=== PATIENT | female | born 1975 | race Caucasian/White ===

== ENCOUNTER 2016-07-23 18:41 | Observation (INO) | payer MEDICARE, OTHER ==
[~2016-07-23 18:41] MED LIST: BENA25TA3 PO; BUSP30TA PO; HOME1TAB8; LYRI225C PO; OMEP40CA2 PO; PROZ40CA PO; TIZA4 PO
[2016-07-23 22:39] VITALS: BP 176/79; PULSE 59; RESP 18; TEMP 97.9; O2SAT 100
[2016-07-23] MEDS ORDERED: ENOXAPARIN SODIUM 40 MG/0.4 ML SYRINGE SQ SCH (23:15)
[2016-07-23] MEDS ORDERED: ACETAMINOPHEN 325 MG TAB PO PRN (23:15)
[2016-07-23] MEDS ORDERED: NALOXONE HCL 0.4 MG/ML AMP IV PRN (23:15)
[2016-07-23] MEDS ORDERED: SODIUM CHLORIDE 0.9% FLUSH 10 ML FLUSH IV FLUSH PRN (23:15)
[2016-07-23] MEDS ORDERED: ONDANSETRON HCL 4 MG/2 ML VIAL IVP PRN (23:15)
--- NOTE | 2016-07-23 23:51 | HHI.HP ---
[facility]Staff Admission Diagnosis Chest pain, elevated D Dimer r/o PE Diagnoses: Chief Complaint: chest pain Travel History International Travel<30 Days: No Contact w/Intl Traveler <30 Da: No Traveled to Known Affected Are: No History of Present Illness This is a 41 year old female patient with a past medical history which includes lupus, fibromyalgia, bipolar, anxiety/depression, PTSD and prior OK at age 21 which did not require cardiac intervention. Patient reports she was in her normal state of health yesterday. Patient reports she was awoken this morning by left sided chest pain which radiated to her shoulder and down her left arm. Patient reports the pain feels like a pressure/tearing sensation. The chest pain is associated with nausea, diaphoresis and inability to take a deep breath. Patient reports nothing so far has relieved the pain. Patient reports the chest pain is worsened by laying flat or deep breathing. Patient reports the pain is a 10 out of 10 and has gotten progressively more severe throughout the day. Initial troponin less than 0.02 and initial EKG read by Dr. Hester [facility], "EKG that is not showing any acute process." Patient had mildly elevated d-dimer 0.52. Patient has recent travel from [place] to [place] approximally 36 hour car ride which she reports she took minimal stops only to use the restroom when necessary. This car trip was completed on June 22, 2016. Patient reports initially when she completed the car trip her bilateral lateral lower extremities were extremely swollen with associate calf pain, which has since resolved. Patient denies history of DVT or pulmonary embolism. Patient is not on hormone replacement. Review of Systems Except as stated in HPI: all other systems reviewed are Neg Past Family Social History Past Medical History lupus, fibromyalgia, bipolar, anxiety/depression, PTSD and prior OK at age 21 which did not require cardiac intervention Past Surgical History Tubal ligation Reported Medications Omeprazole 40 Mg Cap 40 Mg PO DAILY Benadryl Allergy (Diphenhydramine HCl) 25 Mg Tab 25 Mg PO HS PRN Leg Cramp Relief (Homeopathic Products) 1 Tab Tab Lyrica (Pregabalin) 225 Mg Cap 225 Mg PO QHS Zanaflex (Tizanidine HCl) 4 Mg Tab 4 Mg PO BID Buspirone (Buspirone HCl) 30 Mg Tab 30 Mg PO BID Prozac (Fluoxetine HCl) 40 Mg Cap 40 Mg PO DAILY Allergies: Coded Allergies: Contrast Media (Verified Allergy, Unknown, Anaphylaxis, 07/23/16) Cranberry (Verified Allergy, Unknown, Ulcers, 07/23/16) Grapefruit (Verified Allergy, Unknown, Ulcers, 07/23/16) Lortab (Verified Allergy, Unknown, HIVES, 07/23/16) Penicillin (Verified Allergy, Unknown, 07/23/16) PARALYZED Prednisone (Verified Allergy, Unknown, Psychosis, 07/23/16) Tetracycline (Verified Allergy, Unknown, Nausea/Vomiting, 07/23/16) Active Ordered Medications Current Medications Medications (Trade) Dose Ordered Sig/Avani Route Start Time Stop Time Status Last Admin (NS Flush) 2 ml UNSCH PRN IV FLUSH 07/23/16 23:15 (NS Flush) 2 ml BID IV FLUSH 07/24/16 09:00 (Tylenol) 650 mg Q4H PRN PO 07/23/16 23:15 (Zofran Inj) 4 mg Q6H PRN IVP 07/23/16 23:15 (Lovenox Inj) 40 mg Q24H SQ 07/23/16 23:15 (Narcan Inj) 0.4 mg UNSCH PRN IV 07/23/16 23:15 Family History Mother alive 63 has depression, schizophrenia and hypertension Patient is estranged from her father does not know his medical history Paternal grandmother had diabetes Social History Patient reports she smokes cigarettes 4-5 cigarettes per day since age 1 Occasional EtOH use not on a daily basis Denies illicit drug use Physical Exam Vital Signs Vital Signs Date Time Temp Pulse Resp B/P Pulse Ox O2 Delivery O2 Flow Rate FiO2 07/23/16 22:39 97.9 59 18 176/79 100 Physical Exam GENERAL: This is a obese, well-developed patient, appears painful SKIN: No rashes, ecchymoses or lesions. Cool and dry. HEAD: Atraumatic. Normocephalic. No temporal or scalp tenderness. EYES: Extraocular motions intact. No scleral icterus. No injection or drainage. CARDIOVASCULAR: Regular rate and rhythm without murmurs, gallops, or rubs. RESPIRATORY: Diminished throughout inspiratory effort limited by pain GASTROINTESTINAL: Abdomen soft, non-tender, nondistended. MUSCULOSKELETAL: Extremities without clubbing, cyanosis, or edema. No joint tenderness, effusion, or edema noted. No calf tenderness. Negative Homans sign bilaterally. NEUROLOGICAL: Awake and alert. Motor and sensory grossly within normal limits. Five out of 5 muscle strength in all muscle groups. Normal speech. Assessment and Plan Problem List: (1) Atypical chest pain ICD Code: R07.89 Status: Acute (2) Elevated d-dimer ICD Code: R79.89 Status: Acute Assessment and Plan This is a 41 year old female patient with a past medical history which includes lupus, fibromyalgia, bipolar, anxiety/depression, PTSD and prior OK at age 21 which did not require cardiac intervention. Patient reports she was awoken this morning by left sided chest pain which radiated to her shoulder and down her left arm. Patient reports the pain feels like a pressure/tearing sensation. The chest pain is associated with nausea, diaphoresis and inability to take a deep breath. Patient had mildly elevated d-dimer 0.52. 36 hour car ride on June 22, 2016. Atypical chest pain with history of OK- rule out acute coronary syndrome Initial EKG read by Dr. Hester as no acute process Serial EKGs Initial troponin less than 0.02 continue serial troponin Morphine as needed for pain, titrate oxygen as needed Nothing by mouth after midnight with IV fluids normal saline at 84 cc per hour Check TSH, Lipid Profile, Hgb A1c. Start [id number] for bradycardia, ASA and Statin Elevated d-dimer with recent travel Anaphylaxis allergy to contrast medium VQ scan ordered stat pending Ultrasound bilateral lower extremities to rule out DVT also ordered Other stable chronic medical conditions include lupus, fibromyalgia, bipolar and anxiety/depression will continue home medications as indicated DVT prophylaxis with Lovenox at this time Discussed with nursing patient and Dr. Servin Attending Statement Agree with above assessment and plan. Pt is a 41yof w/ complaints of chest pain, +long travel w/ elevated d-dimer, tx from [facility] for V/Q scan and further cardiac work up. Reported h/o OK per patient, details unclear. -Check V/Q Scan -Check LE Doppler -Check serial cardiac enzymes, TSH, Lipid Profile, Hgb A1c. -Start I-[id number] for bradycardia, ASA and Statin -Cardiology consult as needed. Suzy Mott Jul 23, 2016 23:51 Celestina Servin MD Jul 24, 2016 00:23
[2016-07-24 00:02] LABS: BETA HCG QUANT LESS THAN 1 MIU/ML (0-5)
[2016-07-24] MEDS: SODIUM CHLOR 0.9% 1000 ML INJ 1,000 ML IV SCH ×2 (00:10→12:48)
[2016-07-24] MEDS: MORPHINE SULFATE 4 MG/ML INJ IV PUSH PRN ×3 (00:11→08:24)
[2016-07-24] MEDS ORDERED: PILL SPLITTER OTHER PRN (00:30)
--- NOTE | 2016-07-24 02:36 | RADRPT ---
EXAM DATE/TIME: 07/24/2016 02:05 [facility] COMPARISON: No previous studies available for comparison. INDICATIONS : Shortness of breath and left sided chest pain radiating to left arm. Asthma. DOSE: 8.1 mCi Tc99m MAA IV 1.2 mCi Tc99m DTPA aerosol MEDICAL HISTORY : Myocardial infarction. Carcinoma, basal cell. SURGICAL HISTORY : section. Cholecystectomy. Gastric bypass. L5 fusion and breast augumentation. ENCOUNTER: Initial ACUITY: 1 day PAIN SCALE: 2/10 LOCATION: Left chest TECHNIQUE: Following five minutes of tidal breathing of DTPA aerosol, planar images of the lungs were performed in eight projections. The patient was then injected with MAA, and eight-view perfusion scan was perf ormed. FINDINGS: There is a homogeneous pattern of aerosol delivery to the periphery of both lungs. No focal ventilat ory defects are seen. The perfusion lung scan demonstrates a homogenous pattern of uptake in both lungs. No segmental or s ubsegmental defects are seen. CONCLUSION: Homogeneous perfusion. Low probability study for pulmonary embolus. Baldemar Tomlin MD on July 24, 2016 at 2:34 Board Certified Radiologist. This report was verified electronically.
[2016-07-24 06:59] LABS: HDL CHOLESTEROL 42.1 MG/DL (40.0-60.0); LDL CHOLESTEROL 72 MG/DL (0-99)
[2016-07-24 07:03] LABS: AUTOMATED NEUTROPHIL # 3.3 TH/MM3 (1.8-7.7); BASOPHIL # 0.1 TH/MM3 (0-0.2); BASOPHIL % 0.8 % (0.0-2.0); EOSINOPHIL # 0.3 TH/MM3 (0-0.4); EOSINOPHIL % 3.7 % (0.0-4.0); HEMATOCRIT 34.1 % (35.0-46.0); LYMPH % 41.4 % (9.0-44.0); MEAN CELL VOLUME 75.2 FL (80.0-100.0); MEAN CORPUSCULAR HEMOGLOBIN 23.7 PG (27.0-34.0); MEAN CORPUSCULAR HGB CONC 31.5 % (32.0-36.0); MONO % 8.2 % (0.0-8.0); NEUT % 45.9 % (16.0-70.0); PLATELET COUNT 239 TH/MM3 (150-450); RED BLOOD COUNT 4.54 MIL/MM3 (4.00-5.30); WHITE BLOOD COUNT 7.2 TH/MM3 (4.0-11.0)
[2016-07-24 07:22] VITALS: BP 142/77; PULSE 62; RESP 14; TEMP 97.5; O2SAT 99
[2016-07-24 07:42] LABS: HEMO FLAGS AUTO DIFF
[2016-07-24] MEDS ORDERED: busPIRone HCL 10 MG TAB PO SCH (09:00)
[2016-07-24] MEDS ORDERED: FLUoxetine HCL 20 MG CAP PO SCH (09:00)
[2016-07-24] MEDS ORDERED: METOPROLOL TARTRATE 25 MG TAB PO SCH (09:00)
[2016-07-24] MEDS ORDERED: ASPIRIN EC 81 MG TABEC PO SCH (09:00)
[2016-07-24] MEDS ORDERED: PANTOPRAZOLE SOD 40 MG DELAYED RELEASE TAB PO SCH (09:00)
[2016-07-24] MEDS ORDERED: PRAVASTATIN SOD 40 MG TAB PO SCH (09:00)
[2016-07-24] MEDS ORDERED: SODIUM CHLORIDE 0.9% FLUSH 10 ML FLUSH IV FLUSH SCH (09:00)
--- NOTE | 2016-07-24 10:58 | RADRPT ---
EXAM DATE/TIME: 07/24/2016 10:20 [facility] COMPARISON: No previous studies available for comparison. INDICATIONS : Bilateral leg pain and swelling. MEDICAL HISTORY : Myocardial infarction. Gastroesophageal reflux disease. Hypertension. Asthma. Skin cancer. Lupus. SURGICAL HISTORY : Cholecystectomy. section. Gastric bypass. Tonsillectomy. ENCOUNTER: Initial ACUITY: 1 day PAIN SCORE: 1/10 LOCATION: Bilateral legs. TECHNIQUE: Venous ultrasound of the left and right leg was performed from the inguinal ligament to the proximal calf. Real-time, color Doppler and spectral tracing, compression and augmentation techniques were us ed. FINDINGS: RIGHT LEG: There is normal compressibility of the deep venous system from the inguinal region to the proximal ca lf. No echogenic clot is seen in the lumen of the common femoral, femoral, popliteal, and posterior tibial veins. There is a normal response of the venous system to proximal and distal augmentation an d respiration. LEFT LEG: There is normal compressibility of the deep venous system from the inguinal region to the proximal ca lf. No echogenic clot is seen in the lumen of the common femoral, femoral, popliteal, and posterior tibial veins. There is a normal response of the venous system to proximal and distal augmentation an d respiration. CONCLUSION: Normal examination. Tomas Pratt MD on July 24, 2016 at 10:56 Board Certified Radiologist. This report was verified electronically.
[2016-07-24 11:38] LABS: OVALOCYTES 1+ (NORMAL); SCAN/DIFF AUTO DIFF CONFIRMED
[2016-07-24 11:40] VITALS: BP 119/77; PULSE 60; RESP 16; TEMP 97.6; O2SAT 96
--- NOTE | 2016-07-24 12:16 | HHI.PR ---
Subjective Remarks Follow up for atypical chest pain. The patient reports her chest pain has resolved. She continues to have constant left shoulder blade pain, described as a spasm/squeezing pain. Denies any shortness of breath, palpitations. Throughoughly if patient would be able to ambulate for treadmill stress test, the patient reports she does walk 1 mile with her dog almost every day but at a slow pace, and she does not feel she would be able to walk at a brisk pace on the treadmill for 6minutes. Discussed that we would recommend a nuclear stress test but this would not be able to be done until Tuesday. She adamantly does not want to stay in the hospital until Tuesday. She is willing to have nuclear stress test done as outpatient. She is seeing PCP Dr. Brand in [place] and plans to ask for referral to [employer] at her next visit. She wants to go home. Objective Vitals Vital Signs Date Time Temp Pulse Resp B/P Pulse Ox O2 Delivery O2 Flow Rate FiO2 07/24/16 11:40 97.6 60 16 119/77 96 07/24/16 07:22 97.5 62 14 142/77 99 07/24/16 03:55 18 07/23/16 22:39 97.9 59 18 176/79 100 Result Diagram: 07/24/16 0435 Imaging Last Impressions Lung Scan-VQ Nuclear Medicine 07/24/16 0000 Signed Impressions: Service Date/Time: Sunday, July 24, 2016 02:05 - CONCLUSION: Homogeneous perfusion. Low probability study for pulmonary embolus. Baldemar Tomlin MD Lower Extremity Ultrasound 07/24/16 0000 Signed Impressions: Service Date/Time: Sunday, July 24, 2016 10:20 - CONCLUSION: Normal examination. Tomas Pratt MD Objective Remarks GENERAL: Well-nourished, well-developed overweight female patient in [facility]. SKIN: Warm and dry. No rash. HEENT: Normocephalic. Atraumatic.Pupils equal and round. Mucous membranes pink and moist. NECK: Supple. Trachea midline. CARDIOVASCULAR: Regular rate and rhythm. S1, S2 noted. No murmur appreciated. RESPIRATORY: No accessory muscle use. Clear to auscultation. Breath sounds equal bilaterally. GASTROINTESTINAL: Abdomen soft, non-tender, nondistended. Normoactive bowel sounds x4. MUSCULOSKELETAL: No obvious deformities. Extremities without clubbing, cyanosis , or edema. Left upper thoracic paraspinous muscle tenderness to palpation consistent with muscle spasm. NEUROLOGICAL: Awake and alert. No obvious cranial nerve deficits. Motor grossly within normal limits. 5/5 muscle strength in bilateral upper and lower extremities. Normal speech. PSYCHIATRIC: Appropriate mood and affect; insight and judgment normal. Medications and IVs Current Medications Medications (Trade) Dose Ordered Sig/Avani Route Start Time Stop Time Status Last Admin (NS Flush) 2 ml UNSCH PRN IV FLUSH 07/23/16 23:15 (NS Flush) 2 ml BID IV FLUSH 07/24/16 09:00 (Tylenol) 650 mg Q4H PRN PO 07/23/16 23:15 (Zofran Inj) 4 mg Q6H PRN IVP 07/23/16 23:15 (Lovenox Inj) 40 mg Q24H SQ 07/23/16 23:15 07/24/16 00:10 (Narcan Inj) 0.4 mg UNSCH PRN IV 07/23/16 23:15 Morphine Sulfate 2 mg 2 mg Q3H PRN IV PUSH 07/23/16 23:45 07/24/16 08:24 (NS 1000 ml Inj) 1,000 ml @ 84 mls/hr [id number] IV 07/23/16 23:45 07/24/16 00:10 (Buspar) 30 mg BID PO 07/24/16 09:00 07/24/16 08:09 (Lyrica) 225 mg HS PO 07/24/16 21:00 (Zanaflex) 4 mg BID PO 07/24/16 09:00 07/24/16 08:09 (PROzac) 40 mg DAILY PO 07/24/16 09:00 07/24/16 08:09 (Protonix) 40 mg DAILY PO 07/24/16 09:00 07/24/16 08:09 (Ecotrin Ec) 81 mg DAILY PO 07/24/16 09:00 07/24/16 08:09 (Pravachol) 40 mg DAILY PO 07/24/16 09:00 07/24/16 08:09 (Lopressor) 12.5 mg Q12HR PO 07/24/16 09:00 07/24/16 08:09 (Pill Splitter) 1 ea UNSCH PRN OTHER 07/24/16 00:30 A/P Problem List: (1) Atypical chest pain ICD Code: R07.89 Status: Acute (2) Elevated d-dimer ICD Code: R79.89 Status: Acute Assessment and Plan 41 year old female patient with a past medical history which includes lupus, fibromyalgia, bipolar, anxiety/depression, PTSD and prior MO at age 21 which did not require cardiac intervention. Patient reports she was awoken this morning by left sided chest pain which radiated to her shoulder and down her left arm. Patient reports the pain feels like a tearing sensation. The chest pain is associated with nausea, diaphoresis and inability to take a deep breath. Patient had mildly elevated d-dimer 0.52. 36 hour car ride on May. Atypical chest pain with history of MO- rule out acute coronary syndrome. Suspect musculoskeletal, patient tender to palpation at left shoulder blade consistent with previous pains. -ACS ruled out with negative serial cardiac enzymes x3 and EKG with no acute ischemic changes, reviewed by me. -IV morphine prn, O2 as needed -TSH wnl, Lipid Profile wnl, Hgb A1c pending -Started baby aspirin -Chest pain resolved, suspect musculoskeletal, patient with left shoulder pain TTP and with ROM --Discussed with patient, unable to do Nuclear Stress Test in house until 48hrs after VQ scan, patient does not want to wait, unable to get treadmill stress test as unlikely to be able to ambulate for 6+ minutes. Patient plans to f/up with her PCP Dr. Brand in [place] and will obtain referral to cardiology for Nuclear Stress Test as outpatient Elevated d-dimer with recent travel -Anaphylaxis allergy to contrast medium -VQ scan with low probability for PE -Doppler U/S negative for DVT Other stable chronic medical conditions include lupus, fibromyalgia, bipolar and anxiety/depression will continue home medications as indicated DVT prophylaxis with Lovenox Discussed with Dr. Salas. Discharge Planning Discharge patient to home Condition on discharge: Improved Heart Healthy Diet as tolerated Ad Abigail activity Rx written: Aspirin 81mg daily Follow-up with primary care physician Dr. Brand within 1 week Valery Deng PA-C Jul 24, 2016 12:16
[2016-07-24 12:49] LABS: ANION GAP 6 MEQ/L (5-15); BICARBONATE 29.1 MEQ/L (21.0-32.0); BLOOD UREA NITROGEN 8 MG/DL (7-18); CHLORIDE 106 MEQ/L (98-107); GLOMERULAR FILTRATION RATE 90 ML/MIN (>89); POTASSIUM 3.9 MEQ/L (3.5-5.1); SODIUM (NA) 141 MEQ/L (136-145)
[2016-07-24] MEDS ORDERED: TIZA4 PO (13:01)
[2016-07-24] MEDS ORDERED: ASPI81TA11 PO (13:01)
--- NOTE | 2016-07-24 13:01 | HHI.DCPOC ---
Discharge Care Plan Diagnosis: (1) Atypical chest pain (2) Muscle spasm Goals to Promote Your Health * To prevent worsening of your condition and complications * To maintain your health at the optimal level Directions to Meet Your Goals Take your medications as prescribed Follow your dietary instruction Follow activity as directed Keep your appointments as scheduled Take your immunizations and boosters as scheduled If your symptoms worsen call your PCP, if no PCP go to Urgent Care Center or Emergency Room Smoking is Dangerous to Your Health. Avoid second hand smoke Call the 24-hour hour crisis hotline for domestic abuse at Valery Deng PA-C Jul 24, 2016 13:01
[2016-07-24 13:16] VITALS: PULSE 58
--- NOTE | 2016-07-24 18:53 | EKG ---
Date Performed: 07/24/2016 Time Performed: 11:14:55 PTAGE: 41 years EKG: SINUS BRADYCARDIA BORDERLINE ECG Compared to prior tracing no significant change DOCTOR: Beba Mcgee Interpretating Date/Time 07/24/2016 18:51:49
--- NOTE | 2016-07-24 19:04 | EKG ---
Date Performed: 07/24/2016 Time Performed: 05:48:23 PTAGE: 41 years EKG: SINUS BRADYCARDIA WITH SINUS ARRHYTHMIA BORDERLINE ECG Compared to prior tracing no signifi cant change DOCTOR: Beba Mcgee Interpretating Date/Time 07/24/2016 19:03:07
--- NOTE | 2016-07-24 19:10 | EKG ---
Date Performed: 07/23/2016 Time Performed: 23:47:02 PTAGE: 41 years EKG: Sinus rhythm NORMAL ECG Compared to prior tracing no significant change DOCTOR: Beba Mcgee Interpretating Date/Time 07/24/2016 19:08:06
[2016-07-24] MEDS ORDERED: PREGABALIN 75 MG CAP PO SCH (21:00)
[2016-07-25 10:54] LABS: HEMOGLOBIN A1a 1.3 %; HEMOGLOBIN A1b 1.7 %; HEMOGLOBIN Ao 85.3 %; HEMOGLOBIN LA1C 1.8 %; HEMOGLOBIN P3 3.5 %
== END 2016-07-24 14:18 | disposition home or self-care (01) ==
LOC: NEDDLT 18:41 → NEDA 22:34 → NEPGCP 22:36
PROVIDERS: ADMIT Internal Medicine; ATTEND Internal Medicine
DX: R07.89 Other chest pain (principal); R79.89 Other specified abnormal findings of blood chemistry; F31.9 Bipolar disorder, unspecified; F41.9 Anxiety disorder, unspecified; M32.9 Systemic lupus erythematosus, unspecified; K21.9 Gastro-esophageal reflux disease without esophagitis; M79.7 Fibromyalgia; J45.909 Unspecified asthma, uncomplicated; Z88.1 Allergy status to other antibiotic agents; I25.2 Old myocardial infarction; F17.210 Nicotine dependence, cigarettes, uncomplicated; Z98.84 Bariatric surgery status; Z85.828 Personal history of other malignant neoplasm of skin; Z91.041 Radiographic dye allergy status; Z88.0 Allergy status to penicillin; Z88.8 Allergy status to other drugs, medicaments and biological substances; Z91.018 Allergy to other foods
CPT/HCPCS: 71010; 78582; 80048; 80061; 82550; 83036; 83735; 84443; 84484; 84702; 85007; 85025; 85027; 85379; 85610; 85730; 93005; 93970; 99285; A9540; A9567; G0378; J1650; J2270; J7030; 99281